=== PATIENT | female | born 1985 | race Two or more races ===

== ENCOUNTER 2024-02-07 08:36 | Emergency (ER) | payer MEDICAID, OTHER ==
[~2024-02-07] VITALS: Ht 167.6 cm; Wt 101.3 kg
[2024-02-07 09:25] VITALS: PULSE 69; O2SAT 97
[2024-02-07 11:42] VITALS: BP 125/85; PULSE 71; RESP 16; O2SAT 97
== END 2024-02-07 11:20 | disposition home or self-care (01) ==
LOC: ER 08:36
DX: G56.22 Lesion of ulnar nerve, left upper limb (principal)
CPT/HCPCS: 73130